=== PATIENT | female | born 1980 | race Two or more races ===

== ENCOUNTER 2019-03-04 23:16 | Emergency (ER) | payer OTHER ==
[~2019-03-04] VITALS: Ht 165.1 cm; Wt 72.6 kg
[2019-03-04] MEDS ORDERED: PRENATA CHEWAB1 EACH (23:30)
== END 2019-03-05 04:07 | disposition home or self-care (01) ==
LOC: ER 23:16
DX: O20.0 Threatened abortion (principal)

== ENCOUNTER → 2019-03-11 | Outpatient (CLI) | payer OTHER ==
[~2019-03-11] MED LIST: PRENATA CHEWAB1 EACH
== END | disposition home or self-care (01) ==
LOC: PRENATAL 11:00
DX: Z36.82 Encounter for antenatal screening for nuchal translucency (principal); O43.91 Unspecified placental disorder, first trimester; O36.80X1 Pregnancy with inconclusive fetal viability, fetus 1; O26.851 Spotting complicating pregnancy, first trimester; O09.521 Supervision of elderly multigravida, first trimester; Z3A.13 13 weeks gestation of pregnancy

== ENCOUNTER → 2019-05-12 | Outpatient (CLI) | payer OTHER | END | disposition home or self-care (01) | LOC: PRENATAL 04-29 14:00 | DX: O35.3XX1 Maternal care for (suspected) damage to fetus from viral disease in mother, fetus 1 (principal); O09.522 Supervision of elderly multigravida, second trimester ==

== ENCOUNTER → 2019-08-19 | Outpatient (CLI) | payer OTHER | END | disposition home or self-care (01) | LOC: PRENATAL 13:00 | PROVIDERS: ATTEND Obstetrics & Gynecology | DX: O26.843 Uterine size-date discrepancy, third trimester (principal); O28.1 Abnormal biochemical finding on antenatal screening of mother; O99.89 Other specified diseases and conditions complicating pregnancy, childbirth and the puerperium; O35.0XX1 Maternal care for (suspected) central nervous system malformation in fetus, fetus 1 ==

== ENCOUNTER 2019-09-13 11:02 | Inpatient (IN) | payer OTHER ==
[~2019-09-13] VITALS: Ht 165.1 cm; Wt 89.8 kg
== END 2019-09-15 14:20 | disposition home or self-care (01) | DRG 807 ==
LOC: LDR 11:02 → SURG-SUITE 15:50 → LDR 09-15 11:36 → SURG-SUITE 09-15 14:20
PROVIDERS: ADMIT Obstetrics & Gynecology; ATTEND Obstetrics & Gynecology
PROC: 10E0XZZ Delivery of Products of Conception, External Approach (ICD-10-PCS; principal; 2019-09-13)
PROC: 4A1HXCZ Monitoring of Products of Conception, Cardiac Rate, External Approach (ICD-10-PCS; 2019-09-13)
DX: O80 Encounter for full-term uncomplicated delivery (principal); Z37.0 Single live birth; Z3A.39 39 weeks gestation of pregnancy